=== PATIENT | female | born 1945 | race Caucasian/White ===

== ENCOUNTER 2020-06-19 01:18 | Day surgery (SDC) | payer MEDICARE, SELFPAY ==
[2020-06-11 14:16] VITALS: BMI 30.8
[2020-06-19] VITALS (8 sets, daily range): BP systolic 145–171; BP diastolic 67–92; PULSE 82–98; RESP 11–18; TEMP 36.1–36.8; O2SAT 92–100
--- NOTE | ~2020-06-19 | XR_ITS ---
EXAMINATION: XR surgery orthopedic EXAM DATE: 06/19/2020 11:02 INDICATION: Right foot arthrodesis. TECHNIQUE: Fluoroscopy used during XR surgery orthopedic performed by Dr. Jey Mendez MD. The DAP for this procedure was 0.04 mGym2. FINDINGS: Frontal, oblique, dorsal plantar and lateral projections of the right talus and calcaneus. There are 2 lag screws bridging the subtalar joint. Correlate with procedure note. IMPRESSION: Fluoroscopy used during subtalar arthrodesis. Reviewed, dictated and finalized at location B. D EDITOR
[2020-06-19] MEDS: LACTATED RINGERS 1,000 ML 30 ML IV CONT ×2 (06:27→10:21)
[2020-06-19] MEDS: KETOROLAC 15 MG/ML VIAL (*BKC) IV PUSH (06:27)
[2020-06-19] MEDS: ACETAMINOPHEN 500 MG TABLET 1000 MG PO (06:27)
--- NOTE | 2020-06-19 06:30 | SUR.PREOP ---
patient has scooter at home and does not require crutch training
--- NOTE | 2020-06-19 07:18 | WPDANESEPPF ---
Anes - Initial Pre Proc Eval Procedure: Operation Date: 06/19/20 07:30 Proposed Procedures p Right Subtalar Arthrodesis, Posterior Tibial Reconstruction With Flexor Digitorum Tendon Transfer, Spring Ligament Reconstruction, Possible Achilles Reconstruction - Jey Mendez MD Date/Time: 06/19/20 07:18 Surgeon: Jey Mendez MD Pre Op Diagnosis: Right Subtalor Arthritis, Rt Ft pain, Rt flat ft Patient Data Age: 74 Gender: F Height: 1.78 m Weight: 100.4 kg Last Vital Signs Temp 36.8 C 06/19/20 06:43 Pulse 92 06/19/20 06:43 Resp 18 06/19/20 06:43 BP 153/71 H 06/19/20 06:43 Pulse Ox 99 06/19/20 06:43 Allergies Allergy/AdvReac Type Severity Reaction Status Date / Time nitrofurantoin Allergy Unknown Verified 06/19/20 06:20 [From Macrobid] Penicillins Allergy Rash Verified 06/19/20 06:20 Home Medications Medication Instructions Recorded Confirmed Type calcium carb and citrate-vitD3 1 tablet PO DAILY 06/11/20 06/19/20 History [Citracal-D3 Slow Release] cholecalciferol (vitamin D3) 50 mcg PO DAILY 06/11/20 06/19/20 History citalopram 20 mg PO QAM 06/11/20 06/19/20 History coQ10 (ubiquinol) 100 mg PO DAILY 06/11/20 06/19/20 History cyanocobalamin (vitamin B-12) 1,000 mcg PO DAILY 06/11/20 06/19/20 History levothyroxine 100 mcg PO QAM 06/11/20 06/19/20 History oxybutynin chloride 5 mg PO BID 06/11/20 06/19/20 History pravastatin 20 mg PO HS 06/11/20 06/19/20 History Patient hx anesthesia problems: none Family hx anesthesia problems: none PMFSH Past Medical History Medical History (Updated 05/28/20 @ 13:23 by Radha Landry, RT(R)) Arthritis of right subtalar joint Claustrophobia History of breast cancer Hypothyroidism Pes planus of right foot Posterior tibial tendon dysfunction (PTTD) of right lower extremity Uses contact lenses Weight gain Surgical History Surgical History (Updated 05/28/20 @ 13:23 by Radha Landry, RT(R)) History of ankle surgery left History of appendectomy History of breast surgery Family History Family History (Updated 05/28/20 @ 13:24 by Radha Landry RT(R)) Other Breast cancer Cerebrovascular accident High cholesterol Social History Social History (Updated 05/28/20 @ 13:25 by Radha Landry RT(R)) Smoking status: Never smoker Alcohol intake: current Alcohol use details: 2 DRINKS PER MONTH Living arrangements: with family Spiritual care concerns: No Anes - Eval Final PreProcedure Day of Procedure 06/19/20 07:18 Patient weight: obese Heart: regular rate and rhythm Lungs: clear to auscultation and normal air movement Airway: Mallampati scale class II Neurological: alert and oriented Last oral intake: >/= 8 hours ASA classification: III Emergent: no Anesthetic plan: proceed Anesthesia type and monitoring: general LMA and ETT Informed Consent: The patient's anesthetic plan and its attendant risks and benefits were discussed with the patient/family/POA. Questions were solicited and answers provided to the satisfaction of the patient/family/POA.
--- NOTE | 2020-06-19 07:19 | WPDHPUPDATE1 ---
History and Physical Update Update Date/Time: 06/19/20 07:19 History and Physical has been reviewed, including an updated exam of the patient. There are NO changes in the patient's condition. Risks, benefits, and alternatives have been discussed and questions answered. Patient agrees to proceed with procedure.
[2020-06-19] MEDS: ceFAZolin 2 GM/D5W 50 ML 2 GM/50 ML BAG IVPB (07:30)
[2020-06-19] MEDS: BUPIVACAINE HCL 0.5% PF 30 ML VIAL INFILTRATE (08:03)
--- NOTE | 2020-06-19 10:43 | PM.PROC ---
Procedure Note - Detailed Date of procedure: 06/19/20 Pre-op diagnosis: Right Subtalor Arthritis, Rt Ft pain, Rt flat ft Post-op diagnosis: same Procedure performed: Right subtalar arthrodesis, posterior tibial tendon reconstruction with flexor digitorum transfer and spring ligament reconstruction. Description of procedure: Indications: Patient is a 74-year-old woman with severe right flatfoot deformity, posterior tibial tendon dysfunction and subtalar arthritis. She has failed conservative treatment with bracing, physical therapy, home exercises and activity modification. She presents now for operative treatment. What was done: Patient identified in the preoperative holding. Informed consent given. Operative extremity marked. Patient received intravenous antibiotics. Patient brought to the operating room where underwent general anesthetic by anesthesia team. Positioned supine on operating room table. Time-out performed confirming the patient, site of the surgery and the plan. Right lower extremity prepped draped usual sterile surgical fashion using a ChloraPrep skin solution. Foot and ankle exsanguinated and thigh tourniquet inflated to 250 mmHg. Medial longitudinal incision made from the medial malleolus to the medial navicula. Fifteen blade knife used for incision. Hemostasis controlled electrocautery. Fascia incised in line with skin incision. Posterior tibial tendon sheath incised line skin incision. Posterior tibial tendon noted to be completely ruptured and scarred. The scarred portion was excised. Deep to this the flexor digitorum tendon was identified and released distally. This was then passed from plantar to dorsum in the medial navicular and sutured back on itself for repair. Wound thoroughly irrigated final antibiotic solution. PushLock anchor placed in the sustentacular an of the calcaneus and the internal suture bridge then passed through the navicula dorsal and plantar and secured with a 4.75 mm interference screw. Good fixation noted. Subtalar joint and addressed. The capsule was incised medially in the middle and posterior facets exposed. The joint prepared with osteotomes, rongeur and curettes. Subchondral surface feathered and demineralized bone matrix as well as local bone graft was placed into the arthrodesis site. Fixation achieved with 7.0 mm cannulated screw x2. Image intensification confirmed reduction of the joint and placement of the hardware. Wound thoroughly irrigated with antibiotic solution. The medial sheath repaired with 0 Vicryl interrupted suture. Subcutaneous tissue repaired with 2 Vicryl 3 0 Monocryl interrupted suture and skin repaired with 4 nylon running suture. Sterile dressing applied. The patient was then woken from anesthesia, extubated and taken to the recovery room in stable condition. All sponge, needle, instrument counts were correct at the end of the case. Implants: Arthrex 7.0 mm cannulated screw x2, internal brace with SwiveLock anchor and 4.75 interference screw. Anesthesia: GLMA Surgeon: Jey Mendez MD Residency Coordinator: speech language pathologist assistant Estimated blood loss (mL): 20 Tourniquet time (min): 133 Drains: No Packing: No Pathology: none sent Complications: None Condition: stable
== END 2020-06-19 12:20 | disposition home or self-care (01) ==
PROVIDERS: PCP Family Medicine; Visit Provider Orthopaedic Surgery
PROC: (CPT 28750; principal; 2020-06-19 07:30)
DX: M19.071 Primary osteoarthritis, right ankle and foot (principal); M21.41 Flat foot [pes planus] (acquired), right foot; M67.873 Other specified disorders of tendon, right ankle and foot; E03.9 Hypothyroidism, unspecified; Z85.3 Personal history of malignant neoplasm of breast; E66.9 Obesity, unspecified; Z68.31 Body mass index [BMI] 31.0-31.9, adult
CPT/HCPCS: 28725; 28200; 27691; 27695; A9270; C1713; J0690; J1100; J1885; J2405; J2704; J3010; J7120